=== PATIENT | male | born 1965 | race Caucasian/White ===

== ENCOUNTER 2024-07-07 01:07 | Emergency (ER) | payer OTHER ==
[~2024-07-07] VITALS: Ht 172.7 cm; Wt 77.1 kg
[2024-07-07 01:33] LABS: BASOPHILS # (AUTO) 0.1 K/UL (0.0-0.2); BASOPHILS % (AUTO) 1.1 % (0.0-2.0); DIFFERENTIAL COMMENT 1; EOSINOPHILS # (AUTO) 0.4 K/uL (0.0-0.7); EOSINOPHILS % (AUTO) 3.2 % (0.0-7.0); HEMATOCRIT 35.5 % (36.7-47.1); LYMPHOCYTES # (AUTO) 5.8 K/uL (0.8-4.8); LYMPHOCYTES % (AUTO) 53.4 % (20.5-51.5); MEAN CORPUSCULAR HEMOGLOBIN 28.5 uug (23.8-33.4); MEAN CORPUSCULAR HGB CONC 34 g/dL (32.5-36.3); MEAN CORPUSCULAR VOLUME 83.9 fL (73.0-96.2); MONOCYTES # (AUTO) 0.6 K/uL (0.1-1.30); MONOCYTES % (AUTO) 5.8 % (0.0-11.0); NEUTROPHILS % (AUTO) 36.5 % (38.5-71.5); PLATELET COUNT (AUTO) 308 K/uL (152-348); RED BLOOD CELL COUNT(AUTO) 4.23 MIL/uL (4.06-5.63); RED CELL DISTRIBUTION WIDTH 14.7 % (12.1-16.2); WHITE BLOOD COUNT (AUTO) 10.9 K/uL (3.6-10.2)
[2024-07-07 01:34] LABS: CALCIUM 8.7 mg/dL (8.5-10.1); CREATININE 1.1 mg/dL (0.6-1.3); POTASSIUM 3.4 mmol/L (3.5-5.1)
[2024-07-07 01:40] LABS: ALBUMIN 4.2 g/dL (3.4-5.0); BILIRUBIN,DIRECT 0.1 mg/dL (0.0-0.2); BILIRUBIN,TOTAL 0.3 mg/dL (0.2-1.0); TOTAL PROTEIN, SERUM 7.8 g/dL (6.4-8.2)
[2024-07-07 02:12] LABS: EOSINOPHILS % (MANUAL) 3 % (0-8); LYMPHOCYTES % (MANUAL) 53 % (20-40); MONOCYTES % (MANUAL) 6 % (2-10); NEUTROPHILS % (MANUAL) 38 % (42-75)
[2024-07-07 02:13] LABS: PLATELET ESTIMATE ADEQUATE
[2024-07-07] MEDS ORDERED: ACETAMINOPHEN 325 MG TABLET ONE (03:41)
[2024-07-07] MEDS: ACETAMINOPHEN 325 MG TABLET PO ONE (03:44)
[2024-07-07 05:09] VITALS: BP 158/89; O2SAT 99
== END 2024-07-07 05:17 ==
LOC: ER 01:13
DX: R10.9 Unspecified abdominal pain (principal); J40 Bronchitis, not specified as acute or chronic; Z88.1 Allergy status to other antibiotic agents; Z88.6 Allergy status to analgesic agent; Z91.041 Radiographic dye allergy status; Z98.890 Other specified postprocedural states
CPT/HCPCS: 36415; 71045; 83690; 84484; 85025; A4606; A4663; G0480